=== PATIENT | male | born 1965 | race Two or more races ===

== ENCOUNTER 2020-02-03 20:32 | Emergency (ER) | payer SELFPAY ==
[~2020-02-03] VITALS: Ht 167.6 cm; Wt 72.7 kg
[2020-02-03 20:55] VITALS: Ht 167.6 cm; Wt 72.7 kg
[2020-02-03] MEDS ORDERED: OMEPRAZOLE20 M1 PO (20:56)
[2020-02-03] MEDS ORDERED: ZOFRAN4 MG PO (20:56)
[2020-02-03] MEDS ORDERED: KEFLEX500 MG PO (20:57)
[2020-02-03] MEDS ORDERED: CHLOR-TRIMETON4 MG PO (21:07)
[2020-02-03] MEDS ORDERED: IPRATROPIUM BRO30 M1 NASAL (21:07)
[2020-02-03] MEDS ORDERED: AUGMENTIN 875-11 TAB PO (21:07)
[2020-02-03 21:22] VITALS: BP 148/89
== END 2020-02-03 21:22 | disposition home or self-care (01) ==
LOC: D.ER 20:32 → EDSEX 20:32 → D.ER 21:22
DX: J01.10 Acute frontal sinusitis, unspecified (principal); I10 Essential (primary) hypertension; E11.9 Type 2 diabetes mellitus without complications; K21.9 Gastro-esophageal reflux disease without esophagitis